=== PATIENT | female | born 1985 | race Caucasian/White ===

== ENCOUNTER 2018-11-19 11:31 | Inpatient (IN) | payer MEDICAID ==
[~2018-11-19] VITALS: Ht 162.6 cm; Wt 57.0 kg
[2018-11-19 11:52] VITALS: Ht 162.6 cm; Wt 57.0 kg
[2018-11-19 12:51] LABS: BASOPHIL % 0.2 % (0-2); PLATELET COUNT 340 x10^3mcL (130-400)
[2018-11-19 13:03] LABS: ALKALINE PHOSPHATASE 48 U/L (46-116); ALT/SGPT 19 U/L (14-59); AST/SGOT 25 U/L (15-37); BILIRUBIN TOTAL 1.5 mg/dL (0.20-1.00); CALCIUM 8.6 mg/dL (8.5-10.1); CARBON DIOXIDE 26.5 mmol/L (21-32); CHLORIDE SERUM 99 mmol/L (98-107); CREATININE SERUM 0.8 mg/dL (0.6-1.0); GFR1 > 60 mL/min; GLUCOSE SERUM 139 mg/dL (74-106); SODIUM SERUM 136 mmol/L (136-145); T4(THYROXINE) 8.6 ug/dL (4.7-13.3)
[2018-11-19 13:04] LABS: ALBUMIN 2.6 g/dL (3.4-5.0); POTASSIUM SERUM 2.9 mmol/L (3.5-5.1)
[2018-11-19 13:13] LABS: UA SPECIFIC GRAVITY 1.015 (1.005-1.035); microscopic required? YES; urine erythrocyte 1+ (NEGATIVE)
[2018-11-19 13:15] LABS: RED CELL DISTRIBUTION WIDTH 14.9 % (11.5-14.5)
[2018-11-19] MEDS ORDERED: PREDNISONE1 MG PO (16:02)
[2018-11-19] MEDS ORDERED: MOT800 PO (16:03)
[2018-11-19 17:12] VITALS: BP 120/87
[2018-11-19 21:22] VITALS: BP 109/81
[2018-11-20 04:09] VITALS: BP 108/77
[2018-11-20 06:22] LABS: BASOPHIL % 0.2 % (0-2); PLATELET COUNT 258 x10^3mcL (130-400)
[2018-11-20 07:09] LABS: RED CELL DISTRIBUTION WIDTH 15.1 % (11.5-14.5)
[2018-11-20 07:36] LABS: T4(THYROXINE) 8.2 ug/dL (4.7-13.3)
[2018-11-20 08:05] VITALS: BP 122/89
[2018-11-20 09:13] LABS: ERYTHROCYTE SED RATE 96 mm/hr (0-20)
[2018-11-20 12:21] VITALS: BP 107/76
[2018-11-20 14:30] VITALS: BP 107/76
[2018-11-20 14:43] LABS: CALCIUM 8.2 mg/dL (8.5-10.1); CARBON DIOXIDE 26.2 mmol/L (21-32); CHLORIDE SERUM 107 mmol/L (98-107); CREATININE SERUM 0.7 mg/dL (0.6-1.0); GFR1 > 60 mL/min; GLUCOSE SERUM 137 mg/dL (74-106); POTASSIUM SERUM 3.4 mmol/L (3.5-5.1); SODIUM SERUM 139 mmol/L (136-145)
[2018-11-20 16:51] VITALS: BP 119/84
[2018-11-21 10:21] LABS: RHEUMATOID ARTHRITIS FACTOR 127.2 IU/mL (0.0-13.9)
[2018-11-22 07:57] LABS: RAPID PLASMA REAGIN Non Reactive (Non Reactive)
== END 2018-11-20 17:24 | disposition home or self-care (01) | DRG 463 ==
LOC: ED 11:31 → MU 15:14
PROVIDERS: Emergency Medicine; ADMIT Internal Medicine
DX: N39.0 Urinary tract infection, site not specified (principal); E87.3 Alkalosis; E44.0 Moderate protein-calorie malnutrition; J10.1 Influenza due to other identified influenza virus with other respiratory manifestations; R55 Syncope and collapse; E87.6 Hypokalemia; M06.9 Rheumatoid arthritis, unspecified; Z79.899 Other long term (current) drug therapy; Z68.1 Body mass index [BMI] 19.9 or less, adult
CPT/HCPCS: 36600; 82962; 86431; 87804; J1885; J1956; J2930; J3480; J7030; J7040; Q0092

== ENCOUNTER 2019-04-23 14:56 | Emergency (ER) | payer OTHER ==
[~2019-04-23] VITALS: Ht 162.6 cm; Wt 48.1 kg
[~2019-04-23 14:56] MED LIST: MOT800 PO; PREDNISONE1 MG PO
[2019-04-23 14:59] VITALS: Ht 162.6 cm; Wt 48.1 kg
[2019-04-23 15:40] LABS: BASOPHIL % 1.8 % (0-2); PLATELET COUNT 285 x10^3mcL (130-400)
[2019-04-23 15:49] LABS: CALCIUM 8.4 mg/dL (8.5-10.1); CARBON DIOXIDE 27.7 mmol/L (21-32); CHLORIDE SERUM 106 mmol/L (98-107); CREATININE SERUM 0.6 mg/dL (0.6-1.0); GFR1 > 60 mL/min; GLUCOSE SERUM 91 mg/dL (74-106); POTASSIUM SERUM 3.1 mmol/L (3.5-5.1); SODIUM SERUM 143 mmol/L (136-145)
[2019-04-23 15:53] LABS: ALKALINE PHOSPHATASE 54 U/L (46-116); ALT/SGPT 26 U/L (14-59); AST/SGOT 23 U/L (15-37); BILIRUBIN TOTAL 0.9 mg/dL (0.20-1.00)
[2019-04-23 15:55] LABS: ALBUMIN 2.8 g/dL (3.4-5.0); TOTAL PROTEIN, SERUM 8.6 g/dL (6.4-8.2)
[2019-04-23 17:49] VITALS: BP 123/84
== END 2019-04-23 18:10 | disposition home or self-care (01) ==
LOC: ED 14:56
DX: M94.0 Chondrocostal junction syndrome [Tietze] (principal); M06.9 Rheumatoid arthritis, unspecified; G93.7 Reye's syndrome; G51.0 Bell's palsy; Z98.51 Tubal ligation status
CPT/HCPCS: 36415; J1885

== ENCOUNTER 2020-08-05 17:00 | Emergency (ER) | payer OTHER, SELFPAY ==
[~2020-08-05] VITALS: Ht 162.6 cm; Wt 61.2 kg
[2020-08-05 17:02] VITALS: Ht 162.6 cm; Wt 61.2 kg
[2020-08-05 19:44] VITALS: BP 130/75
== END 2020-08-05 19:44 | disposition home or self-care (01) ==
LOC: ED 17:00
DX: U07.1 COVID-19 (principal)
CPT/HCPCS: U0003

== ENCOUNTER 2020-10-07 12:45 | Inpatient (IN) | payer OTHER ==
[~2020-10-07] VITALS: Ht 162.6 cm; Wt 56.7 kg
[2020-10-07 12:57] VITALS: Ht 162.6 cm; Wt 56.7 kg
[2020-10-07 14:24] LABS: BASOPHIL % 0.8 % (0.2-1.3); PLATELET COUNT 201 x10^3mcL (179-408)
[2020-10-07 14:30] LABS: RED CELL DISTRIBUTION WIDTH 15.1 % (12.3-17.7)
[2020-10-07 14:49] LABS: CALCIUM 8.7 mg/dL (8.5-10.1); CARBON DIOXIDE 17.8 mmol/L (21-32); CHLORIDE SERUM 98 mmol/L (98-107); CREATININE SERUM 0.9 mg/dL (0.6-1.0); GFR1 > 60 mL/min; GLUCOSE SERUM 111 mg/dL (74-106); POTASSIUM SERUM 3.6 mmol/L (3.5-5.1); SODIUM SERUM 133 mmol/L (136-145)
[2020-10-07 15:02] LABS: ALKALINE PHOSPHATASE 84 U/L (46-116); ALT/SGPT 53 U/L (14-59); AST/SGOT 65 U/L (15-37); BILIRUBIN TOTAL 3.2 mg/dL (0.20-1.00); C REACTIVE PROTEIN 2.9 mg/dL (<=0.9); LACTIC DEHYDROGENASE (LDH) 454 U/L (100-190); LIPASE 101 IU/L (73-393); TOTAL PROTEIN, SERUM 7.7 g/dL (6.4-8.2)
[2020-10-07 15:17] LABS: ALBUMIN 2.6 g/dL (3.4-5.0)
[2020-10-07 18:47] VITALS: BP 108/81
[2020-10-07 20:12] VITALS: BP 108/81
== END 2020-10-08 03:00 | DRG 45 ==
LOC: ED 12:45 → DU 17:43
PROVIDERS: Emergency Medicine; ADMIT Hospitalist; ATTEND Hospitalist
PROC: 0BH17EZ Insertion of Endotracheal Airway into Trachea, Via Natural or Artificial Opening (ICD-10-PCS; principal; 2020-10-07)
PROC: 5A1935Z Respiratory Ventilation, Less than 24 Consecutive Hours (ICD-10-PCS; 2020-10-07)
PROC: 5A12012 Performance of Cardiac Output, Single, Manual (ICD-10-PCS; 2020-10-07)
DX: I63.9 Cerebral infarction, unspecified (principal); I46.9 Cardiac arrest, cause unspecified; D84.9 Immunodeficiency, unspecified; T68.XXXA Hypothermia, initial encounter; E87.2 Acidosis; M19.90 Unspecified osteoarthritis, unspecified site; I73.00 Raynaud's syndrome without gangrene; G51.0 Bell's palsy; M06.9 Rheumatoid arthritis, unspecified; Z20.822 Contact with and (suspected) exposure to COVID-19
CPT/HCPCS: 82962; 83880; 85378; 87804; G0378; J1644; J1885; J2405; J2920; J3535; J7030; J7040; Q9967